=== PATIENT | male | born 1960 | race Caucasian/White ===

== ENCOUNTER 2020-03-24 13:15 | Outpatient (CLI) | payer BC, SELFPAY ==
--- NOTE | 2020-03-24 13:26 | CT_ITS ---
WS: [id number] CT scan of the abdomen and pelvis without Oral and IV contrast. Additional two-dimensional coronal an d sagittal reconstruction was performed. 03/24/2020 Clinical Data: FLANK PAIN, HEMATURIA Comparison: CT abdomen and pelvis, 01/17/2013. DLP: 1232.[address] scans at [facility] use at least one of these dose optimization techniques: automat ed exposure control; mA and/or kV adjustment per patient size (includes targeted exams where dose is matched to clinical indication); or iterative reconstruction. Findings: The lower lungs show no nodules, masses or effusions. The liver, gallbladder, spleen, adrenal glands and pancreas are normal. The right kidney shows hydronephrosis with hydroureter down to the level of the right ureterovesical junction. There is a 0.7 cm calculus in the distal right ureter. The left kidney is normal. There is a small nonobstructing central right renal calculus. The abdominal aorta is normal in size with minim al calcification in the wall.. No appendicitis or diverticulitis is seen. There are numerous sigmoid diverticula. The stomach and sm all bowel are not remarkable. No abscess, adenopathy, ascites, mass, obstruction or free air is seen . The bladder is unremarkable. The prostate is enlarged with calcifications.. Degenerative change of all the lumbar vertebral bodies with disc space narrowing at L5-S1 is seen. CT/CT kidney stone [id number] Impression: 1. Right ureteral vesicle junction calculus, 0.7 cm, causing right hydronephros is and right hydroureter. 2. Nonobstructing central right renal calculus.
== END 2020-03-24 13:16 | disposition home or self-care (01) ==
LOC: RADWPI 13:22
PROVIDERS: PCP Registered Nurse; Visit Provider Registered Nurse
DX: R10.9 Unspecified abdominal pain (principal); R31.9 Hematuria, unspecified; N20.2 Calculus of kidney with calculus of ureter; N13.30 Unspecified hydronephrosis; N13.4 Hydroureter
CPT/HCPCS: 74176

== ENCOUNTER 2020-03-25 07:51 | Outpatient (CLI) | payer BC, SELFPAY ==
--- NOTE | 2020-03-25 07:58 | XR_ITS ---
WS: [id number] XR KUB [id number] REASON FOR EXAM: URETERAL CALCULUS FINDINGS: Bowel gas pattern is unremarkable. No retroperitoneal or free air is identified. No calculi are identified in the region of the kidneys. Within the pelvis there is a small calcific density in the lower pelvis just to the right of midline. Potentially this could represent the calculus identified on the prior day's CT scan, in the distal r ight ureter. Cannot exclude the calculus being within the bladder. XR/XR KUB [id number] IMPRESSION: Potential urinary tract calculus as described above.
== END 2020-03-25 07:52 | disposition home or self-care (01) ==
LOC: RAD 07:57
PROVIDERS: PCP Registered Nurse; Visit Provider Urology
DX: N20.1 Calculus of ureter (principal)
CPT/HCPCS: 74018; 81003; 87635

== ENCOUNTER 2020-03-27 11:12 | Day surgery (SDC) | payer BC, SELFPAY ==
[2020-03-26 15:57] VITALS: BMI 33.2
[2020-03-27] VITALS (8 sets, daily range): BP systolic 130–159; BP diastolic 60–94; PULSE 66–110; RESP 16–22; TEMP 36.4–36.8; O2SAT 95–100
--- NOTE | 2020-03-27 | SCC_ITS ---
Procedure Done: 1. Right retrograde ureteropyelogram 2. Cystoscopy, right: Ureteroscopy, laser, stent 46.8 seconds of fluoroscopic guidance, for a cumulative dose of 15.56 mGy, was provided to Dr. Sumner by the radiology department. C-arm images of the abdomen were saved for the patient's permanent record. [facility]
--- NOTE | 2020-03-27 11:20 | SC_ITS ---
WS: [id number] C-arm fluoroscopy of the right abdomen and pelvis for stent placement, 03/27/2020 Clinical Data: Right ureteroscopy Comparison: None. Findings: A right ureteral stent has been inserted. It appears to be coiled in the right renal pelvis and in th e bladder. Impression: Placement of right ureteral stent.
[2020-03-27] MEDS: sodium chloride 0.9% 1,000 ML 30 ML IV (11:41)
--- NOTE | 2020-03-27 11:53 | ANES.PREANE2 ---
Pre-Anesthetic Assessment Pre-Anesthetic Assessment: Height/Weight: Height 1.83 m Weight 111.13 kg Temp Pulse Resp BP Pulse Ox 98.3 F 75 18 155/82 98 03/27/20 11:27 03/27/20 11:27 03/27/20 11:27 03/27/20 11:27 03/27/20 11:27 Preop Diagnosis: Refractory right distal ureteral stone Proposed Procedure: Operation Date: 03/27/20 13:00 Proposed Procedures p Laser Lithotripsy 47830 54827 07253-16 N20.1(Not Applicable) - Sesar Sumner MD s Cystoscopy(Not Applicable) - Sesar Sumner MD s Retrograde Pyelogram(Right) - Sesar Sumner MD s Ureteral Stent Placement(Not Applicable) - Sesar Sumner MD Familial anesthetic complications: Mother coded during her cath procedure, but lived. He has no other information Was Beta Irish taken within 24 hours: N/A Last intake: Intake Last Liquid Date 03/27/20 Last Liquid Time 08:00 Last Solid Date 03/26/20 Last Solid Time 20:30 Social: Social History: No alcohol and No tobacco Exam: Pre-Anes Outpt Exam: alert, oriented x 3, clear to auscultation bilaterally and regular rate & rhythm Airway: Cervical ROM: WNL MP: 3 Dentition: Other (missing) Pulmonary: Pulmonary: Sleep apnea (cpap) CV/HEM: CV/HEM: HTN Metabolic: Metabolic: Morbid obesity Anesthetic Plan: ASA status: 2 Anesthesia: General Risk of > 500 ml blood loss (7ml/kg in children): No Meds/Allergies Current Medications: Current Medications Generic Name Dose Route Start Last Admin Trade Name Freq PRN Reason Stop Dose Admin Sodium Chloride 1,000 mls @ 30 ml s/hr 03/27/20 11:30 03/27/20 11:41 Sodium Chloride 0.9% IV 03/28/20 11:29 30 mls/hr .Q24H ACE Administration PFSH Anesthesia PFSH: Medical History Ureteral calculus, right Family History Father Hypertension Mother CAD (coronary artery disease) Hypertension Brother Diabetes Hypertension Social History Smoking and tobacco status: never smoked Adopted: No Caregiver/support person: No Lives independently: No Household members: spouse Marital status: Data Anesthesia Cardiac Studies: No Data to Display
[2020-03-27] MEDS: levofloxacin-dextrose 5 % 500 MG/100 ML PREMIX 100 MG IV (13:43)
--- NOTE | 2020-03-27 13:46 | W.PM.OPSUD ---
Surgery/Procedure H&P Update DATE OF PROCEDURE: March 27, 2020 DATE H&P PERFORMED: 03/25/20 H&P UPDATE INFORMATION: I have reviewed H&P completed within last 30 days, I have examined patient prior to procedure and No changes to prior documentation PREOP DIAGNOSIS: Refractory right distal ureteral stone PLANNED PROCEDURE: Operation Date: 03/27/20 13:00 Proposed Procedures p Laser Lithotripsy 87840 00742 36846-15 N20.1(Not Applicable) - Sesar Sumner MD s Cystoscopy(Not Applicable) - Sesar Sumner MD s Retrograde Pyelogram(Right) - Sesar Sumner MD s Ureteral Stent Placement(Not Applicable) - Sesar Sumner MD
--- NOTE | 2020-03-27 13:47 | PM.OP ---
Operative Report Date of procedure: March 27, 2020 Pre-op Diagnosis: Refractory right distal ureteral stone Post-op diagnosis: same Procedure Done: 1. Right retrograde ureteropyelogram 2. Cystoscopy, right: Ureteroscopy, laser, stent Implants: Right ureteral stent Pathology: Stone fragments Surgeon: Burak Anesthesia: General Estimated blood loss: Minimal Urine output: not measured Complications: None Findings: Stone in the expected position. Fragment with laser completely. Fragments removed and stent left indwelling. Condition: stable Disposition: PACU Brief History: Mr. Branch is a very pleasant 59-year-old white male recently presenting with complaints of severe right renal colicky symptoms. CT scan confirmed a large right distal ureteral stone with severe right hydroureteronephrosis. KUB on follow-up in the clinic confirmed the location of the stone seen on CT scan. He was still quite symptomatic and elected scheduling for intervention via endoscopy. Covid test was negative. Informed consent was obtained. Procedure: After routine preoperative evaluation examination and obtaining of informed consent he was taken to the operating suite on 03/27/2020 where general anesthesia was administered without difficulty after appropriate timeout was performed, SCDs confirmed to be functioning, preoperative antibiotics administered, beta-melinda protocol confirmed. Prepped and draped in the usual sterile fashion in dorsal lithotomy position paying careful attention to avoiding pressure points 21 Jordanian cystoscope with 30 degree lens was introduced into the urethral meatus and advanced into the bladder under videoscopy. The bladder was systematically examined. No stones were seen. An 8 Jordanian cone-tipped catheter was intubated into the right ureteral orifice for RIGHT RETROGRADE URETEROPYELOGRAM: Contrast showed normal ureter distal to the stone that occurred as a filling defect in the expected position. The ureter proximal to that point was severely dilated. No other obvious filling defects were identified. A flexible tip guidewire was then advanced up the right ureter but could not be advanced easily beyond the stone and instead began curling in the ureter distal to the stone. A flexible zip wire was then utilized and with the assistance of a open-ended ureteral catheter visit wire was able to be manipulated beyond the stone and curling in the area of the upper pole calyx. The open-ended ureteral catheter could not be easily advanced over the zip wire beyond the stone. The distal ureter was then dilated with a 15 Jordanian 4 cm balloon from just below the stone through the orifice. This allowed easy passage of a 7 Jordanian offset semirigid ureteroscope next to the guidewire. The scope could not be passed all the way up to the stone and for that reason a second guidewire was then passed through the ureteroscope beyond the stone and this allowed easy passage of the ureteroscope to the stone. The stone was impacted in the medial anterior aspect of the ureter. A 200 ?m thulium superpulse laser fiber was then passed next to the guidewire through the ureteroscope and the portion of the stone that was exposed was able to be partially fragmented which opened up the space quite significantly. The guidewire was then removed and the laser fiber was utilized to completely fragment the stone into small pieces that were easily removed with a parachute basket and were washed from the ureter. Final inspection showed no further residual fragments but did show significant inflammatory changes where the stone had been impacted. The wire was then repassed through the cystoscope and the zip wire was removed as a safety wire. The ureteroscope was removed. The cystoscope was then backloaded over the guidewire and a 6 Jordanian by 30 cm double-pigtail stent was advanced over the guidewire through the cystoscope into appropriate position as confirmed via fluoroscopy and cystoscopy. Bladder was drained and the fragments that remained in the bladder were flushed free. The procedure completed. He tolerated the procedure well without complications and was awakened in the operating room and returned to the recovery room in stable condition. PLANS: 1. Discharge from outpatient surgery 2. Follow-up late next week for cystoscopy and stent removal.
[2020-03-27] MEDS: iohexol 300 mg/mL 50 mL Btl (OR ONLY) XX (14:13)
--- NOTE | 2020-03-27 15:56 | ECG_ITS ---
[facility] Test Date: 2020-03-27 Pat Name: Ashok Branch Department: Room: Gender: Male Hemodialysis Charge Nurse: : 1960 Requested By: Nazia Plunkett Order Number: [id number] Destiny MD: IBAN BONILLA Measurements Intervals [place] Rate: 67 P: 74 MS: 199 QRS: -2 QRSD: 94 T: 54 QT: 391 QTc: 413 Interpretive Statements SINUS RHYTHM No previous ECG available for comparison Electronically Signed On 03-27-2020 19:27:56 MEDIA TRAFFIC MANAGER by IBAN BONILLA [email or web address]
--- NOTE | 2020-03-27 17:05 | ANE.PACU2 ---
Inpatient post-anesthesia follow up: Airway intact: Yes Vital signs: Temperature 97.5 F Pulse Rate 66 Respiratory Rate 18 Blood Pressure 144/60 Pulse Oximetry 98 Oxygen Delivery Me thod Room Air Oxygen Flow Rate Fraction of Inspir ed Oxygen Hydration adequate: Yes Nausea and vomiting: No Pain level: 2 Mental status: Baseline Additional Comments: Patient complained of localized stabbing chest pain to the Left of his chest, that did not travel to jaw, neck, back, or arm in phase II. Went away on its own after 5 minutes with no interventions. EKG NSR.
== END 2020-03-27 17:09 | disposition home or self-care (01) ==
PROVIDERS: PCP Registered Nurse; Visit Provider Urology
PROC: (CPT 52356; principal; 2020-03-27 13:00)
PROC: 0TJB8ZZ Inspection of Bladder, Via Natural or Artificial Opening Endoscopic (ICD-10-PCS; CPT 52000; 2020-03-27 13:00)
PROC: (CPT 74420; 2020-03-27 13:00)
PROC: (CPT 50605; 2020-03-27 13:00)
DX: N20.1 Calculus of ureter (principal)
CPT/HCPCS: 52356; 12345; 76000; 82365; 88300; 93005; C1725; C2625; J1100; J1956; J2405; J2704; J2710; J3010; J3490; J7030

== ENCOUNTER → 2020-04-03 09:39 | Outpatient (BNVA) | payer BC, SELFPAY | PROVIDERS: PCP Registered Nurse; Visit Provider Urology | DX: N20.1 Calculus of ureter (principal); Z96.0 Presence of urogenital implants | CPT/HCPCS: 81003 ==

== ENCOUNTER 2020-10-13 08:49 | Outpatient (CLI) | payer BC, SELFPAY ==
--- NOTE | 2020-10-13 09:30 | XR_ITS ---
WS: [id number] Exam: XR KUB [id number] Date/Time of Exam: 10/13/2020 9:09 AM Reason For Exam: N20.1 - Calculus of ureter No bowel obstruction or free air. No calcifications visualized over the renal silhouettes. Visualized organ margins appear normal. Moderate amount stool in the colon. Degenerative changes of lumbar spin e. XR/XR KUB [id number] IMPRESSION: 1. No calcifications noted in the region of the kidneys. 2. No acute abdominal process.
== END 2020-10-13 08:50 | disposition home or self-care (01) ==
LOC: RAD 08:59
PROVIDERS: PCP Registered Nurse; Visit Provider Urology
DX: N20.1 Calculus of ureter (principal)
CPT/HCPCS: 74018; 81003

== ENCOUNTER 2021-10-21 08:51 | Outpatient (CLI) | payer BC, SELFPAY ==
--- NOTE | 2021-10-21 08:30 | XRR_ITS ---
PROCEDURE INFORMATION: Exam: XR Abdomen Exam date and time: 10/21/2021 9:20 AM Age: 60 years old Clinical indication: Condition or disease; Kidney or ureter condition; Calculus (stone) in kidney; Additional info: Renal calculus, kub @ ozh on 10/21/21 @ 8:30. Appt to follow TECHNIQUE: Imaging protocol: XR of the abdomen. Views: Frontal supine view of the abdomen. 1 View. Total images: 2 COMPARISON: CR XR KUB [id number] 10/13/2020 9:06 AM FINDINGS: Gastrointestinal tract: Bowel gas pattern is nondistended and nonobstructive. Organs: No renal, ureteral, nor bladder calculi detected. Bones/joints: Spinal degenerative changes are evident. Other findings: Moderate stool burden. XR/XR KUB [id number] IMPRESSION: 1. Normal bowel gas pattern 2. Moderate stool burden. 3. No renal, ureteral, nor bladder calculi detected.
== END 2021-10-21 08:52 | disposition home or self-care (01) ==
PROVIDERS: PCP Registered Nurse; Visit Provider Urology
DX: N20.0 Calculus of kidney (principal)
CPT/HCPCS: 74018; 81003

== ENCOUNTER 2022-05-03 11:27 | Outpatient (CLI) | payer BC, SELFPAY ==
--- NOTE | 2022-05-03 11:44 | XR_ITS ---
WS: [id number] KUB, AP view, 05/03/2022 Clinical Data: Renal Calculus Comparison: KUB, 10/21/2021 Findings: No abnormal intraabdominal masses or calcifications are seen. There is no dilatated small bowel or ev idence of obstruction. There is a moderate amount of fecal material in the colon XR/XR KUB [id number] Impression: Negative KUB.
== END 2022-05-03 11:28 | disposition home or self-care (01) ==
LOC: RAD 11:30
PROVIDERS: PCP Registered Nurse; Visit Provider Urology
DX: N20.0 Calculus of kidney (principal)
CPT/HCPCS: 74018; 81003

== ENCOUNTER → 2024-07-23 12:39 | Outpatient (BNVA) | payer BC, SELFPAY | PROVIDERS: PCP Registered Nurse; Visit Provider Orthopaedic Surgery | DX: M54.9 Dorsalgia, unspecified (principal) | CPT/HCPCS: 72110 ==